=== PATIENT | female | born 1960 | race Caucasian/White ===

== ENCOUNTER 2020-03-20 09:21 | Inpatient (IN) | payer BC ==
[~2020-03-20] VITALS: Ht 167.6 cm; Wt 77.3 kg
[2020-03-20 10:03] LABS: BASOPHILS % (AUTO) 0.7 % (0-1); EOSINOPHILS # (AUTO) 0.2 X10'3 (0-0.9); EOSINOPHILS % (AUTO) 2.2 % (0-6); HEMATOCRIT 40.4 % (35.0-45.0); HEMOGLOBIN 13.6 g/dl (12.0-16.0); LYMPHOCYTES # (AUTO) 2.8 X10'3 (1.1-4.8); LYMPHOCYTES % (AUTO) 39.2 % (21-51); MEAN CORPUSCULAR HEMOGLOBIN 35.5 PG (27.0-31.0); MEAN CORPUSCULAR HGB CONC 33.5 g/dL (33.0-36.5); MEAN CORPUSCULAR VOLUME 105.7 FL (78-98); MEAN PLATELET VOLUME 7.6 FL (7.4-10.4); MONOCYTES # (AUTO) 0.6 X10'3 (0-0.9); MONOCYTES % (AUTO) 8.1 % (2-12); NEUTROPHILS # (AUTO) 3.5 X10'3 (1.8-7.7); NEUTROPHILS % (AUTO) 49.8 % (42-75); PLATELET COUNT 393 X10'3 (140-440); RED BLOOD COUNT 3.82 X10'6 (4.20-5.60); RED CELL DISTRIBUTION WIDTH 14.9 % (11.5-14.5)
[2020-03-20 10:14] LABS: ALANINE AMINOTRANSFERASE 38 U/L (12-78); ALBUMIN 3.4 G/DL (3.4-5.0); ALKALINE PHOSPHATASE 141 IU/L (46-116); ANION GAP 11 (8-16); ASPARTATE AMINO TRANSFERASE 26 U/L (10-37); BILIRUBIN,TOTAL 0.3 MG/DL (0.1-1.0); BLOOD UREA NITROGEN 13 MG/DL (7-18); BUN/CREATININE RATIO 17.6 (6.6-38.0); CALCIUM 8.6 MG/DL (8.5-10.1); CHLORIDE 109 MMOL/L (99-107); CREATININE 0.74 MG/DL (0.40-0.90); GLUCOSE 101 MG/DL (70-104); SODIUM 144 MMOL/L (135-145); TOTAL CARBON DIOXIDE 24.5 MMOL/L (24-32); TOTAL PROTEIN 6.9 G/DL (6.4-8.2); eGFR 80 ML/MIN
[2020-03-20] MEDS ORDERED: nitroGLYCERIN 1gm ointment UD TP ONE (10:45)
[2020-03-20] MEDS ORDERED: iohexol 350MG/ML 100ml bottle IV ONE (11:24)
[2020-03-20] MEDS ORDERED: ZINC50TA67 PO (13:05)
[2020-03-20] MEDS ORDERED: TRIA1TAB5 PO (13:05)
[2020-03-20] MEDS ORDERED: MULT-969 PO (13:05)
[2020-03-20] MEDS ORDERED: acetaminophen 650mg rectal suppository RC PRN (15:05)
[2020-03-20] MEDS ORDERED: mag hydrox/Alum hydrox/simeth 30ml oral suspension PO PRN (15:05)
[2020-03-20] MEDS ORDERED: magnesium hydroxide 30ml (MOM) UD suspension PO PRN (15:05)
[2020-03-20] MEDS ORDERED: potassium Cl 20 mEq SR tablet PO PRN ×2 (15:05)
[2020-03-20] MEDS ORDERED: metoprolol tartrate 1mg/ml inj IV PRN (15:05)
[2020-03-20] MEDS ORDERED: morphine 2 MG/ML inj. syringe IV PRN ×2 (15:05)
[2020-03-20] MEDS ORDERED: potassium Cl 40MEQ/1/2NS 520ml 520 ML IV PRN ×2 (15:05)
[2020-03-20] MEDS ORDERED: magnesium 2GM in 50ml NS 50 ML IV PRN (15:05)
[2020-03-20] MEDS ORDERED: HYDROcodone/acetaminophen 10/325mg tab PO PRN (15:05)
[2020-03-20] MEDS ORDERED: regadenoson 0.4mg/5ml syringe IV ONE (15:05)
[2020-03-20] MEDS ORDERED: HYDROcodone/acetaminophen 5mg/325mg tablet PO PRN (15:05)
[2020-03-20] MEDS ORDERED: ondansetron/PF 4mg/2ml inj IV PRN (15:05)
[2020-03-20] MEDS ORDERED: aminophylline 250mg/10ml inj. IV PRN (15:05)
[2020-03-20] MEDS ORDERED: nitroGLYCERIN 0.4mg SUBLingual tab SL PRN (15:05)
[2020-03-20] MEDS ORDERED: acetaminophen 325mg tablet PO PRN ×2 (15:05)
[2020-03-20] MEDS ORDERED: bisacodyl 10mg suppository rectal RC PRN (15:05)
[2020-03-20] MEDS ORDERED: magnesium 4gm in 100ml NS 100 ML IV PRN (15:05)
[2020-03-20] MEDS ORDERED: magnesium Cl slow-release 64mg tablet PO PRN (15:05)
[2020-03-20] MEDS: normal saline 1000ml 1,000 ML IV SCH (15:31)
[2020-03-20] MEDS: atorvastatin 10mg tablet PO SCH (15:31)
[2020-03-20 16:24] LABS: CHOLESTEROL 176 MG/DL (0-200); HDL CHOLESTEROL 35 MG/DL (35-60); HEMOGLOBIN A1C 6.1 % (4.5-6.2); LDL CHOLESTEROL 127 MG/DL (50-100); TRIGLYCERIDES 59 MG/DL (20-135)
[2020-03-20 18:24] LABS: CLARITY,URINE SLIGHTLY CLOUDY (Clear); COLOR,URINE YELLOW (Yellow); GLUCOSE, URINE NEGATIVE (Neg); KETONES,URINE NEGATIVE (Neg); LEUKOCYTE ESTERASE ,URINE NEGATIVE (Neg); NITRITES, URINE NEGATIVE (Neg); OCCULT BLOOD,URINE SMALL (Neg); PROTEIN,URINE NEGATIVE (Neg); UROBILINOGEN,URINE 0.2 E.U/dL (0.2-1.0)
[2020-03-20 18:28] LABS: UA COLLECTION TYPE CLN CATCH MIDSTREAM
--- NOTE | 2020-03-20 18:50 | NUR ---
Patient in room ED 4. I have received report from Andrew RODRIGUEZ and had the opportunity to ask questions and assume patient care.
[2020-03-20 18:52] LABS: BACTERIA,URINE NONE SEEN /HPF (Neg); RBC,URINE NONE SEEN /HPF (0-2); SQUAMOUS EPITHELIAL CELL,UR MODERATE /LPF (FEW); WBC,URINE 0-4 /HPF (0-4)
[2020-03-20 19:10] VITALS: BP 98/57
[2020-03-20] MEDS: K and/or MAG REPLACEMENT MC SCH (20:00)
[2020-03-20] MEDS: heparin, porcine 5000 units/ml vial SQ SCH (20:05)
[2020-03-20 23:00] VITALS: BP 117/76
[2020-03-21] VITALS (10 sets, daily range): BP systolic 88–132; BP diastolic 49–74
[2020-03-21] MEDS: normal saline 1000ml 1,000 ML IV SCH (04:25)
--- NOTE | 2020-03-21 06:27 | NUR ---
Problems reprioritized. Patient report given, questions answered & plan of care reviewed with Carlos RODRIGUEZ.
--- NOTE | 2020-03-21 06:39 | NUR ---
REPORT RECEIVED BY AN RODRIGUEZ. PATIENT LAYING ON BED SLEEPING NO DISTRESS NOTED. WILL ASSUME CARE. ALL QUESTIONS ANSWERED
[2020-03-21] MEDS ORDERED: aspirin 81mg tablet.DR PO SCH (08:00)
[2020-03-21] MEDS: K and/or MAG REPLACEMENT MC SCH (08:00)
[2020-03-21] MEDS ORDERED: beta-carotene(A) w/C & E + minerals tab PO SCH (08:00)
[2020-03-21] MEDS: heparin, porcine 5000 units/ml vial SQ SCH (08:00)
[2020-03-21 08:14] LABS: BASOPHILS % (AUTO) 0.4 % (0-1); EOSINOPHILS # (AUTO) 0.2 X10'3 (0-0.9); EOSINOPHILS % (AUTO) 2.3 % (0-6); HEMATOCRIT 41.7 % (35.0-45.0); LYMPHOCYTES # (AUTO) 2.7 X10'3 (1.1-4.8); MEAN CORPUSCULAR HEMOGLOBIN 35.3 PG (27.0-31.0); MEAN CORPUSCULAR HGB CONC 33.6 g/dL (33.0-36.5); MEAN CORPUSCULAR VOLUME 105.1 FL (78-98); MEAN PLATELET VOLUME 7.6 FL (7.4-10.4); MONOCYTES # (AUTO) 0.8 X10'3 (0-0.9); MONOCYTES % (AUTO) 9.1 % (2-12); NEUTROPHILS # (AUTO) 5.5 X10'3 (1.8-7.7); NEUTROPHILS % (AUTO) 59.2 % (42-75); PLATELET COUNT 391 X10'3 (140-440); RED BLOOD COUNT 3.97 X10'6 (4.20-5.60); RED CELL DISTRIBUTION WIDTH 15.1 % (11.5-14.5); WHITE BLOOD COUNT 9.3 X10'3 (4.5-11.0)
[2020-03-21 08:34] LABS: ALANINE AMINOTRANSFERASE 41 U/L (12-78); ALBUMIN 3.2 G/DL (3.4-5.0); ALBUMIN/GLOBULIN RATIO 0.9 (1.1-1.5); ALKALINE PHOSPHATASE 167 IU/L (46-116); ANION GAP 9 (8-16); ASPARTATE AMINO TRANSFERASE 25 U/L (10-37); BILIRUBIN,TOTAL 0.2 MG/DL (0.1-1.0); BLOOD UREA NITROGEN 14 MG/DL (7-18); BUN/CREATININE RATIO 19.4 (6.6-38.0); CALCIUM 8.6 MG/DL (8.5-10.1); CHLORIDE 108 MMOL/L (99-107); CHOLESTEROL 169 MG/DL (0-200); CREATININE 0.72 MG/DL (0.40-0.90); GLUCOSE 95 MG/DL (70-104); HDL CHOLESTEROL 34 MG/DL (35-60); LDL CHOLESTEROL 121 MG/DL (50-100); PHOSPHORUS 3.7 MG/DL (2.3-4.5); POTASSIUM 4.2 MMOL/L (3.5-5.1); SODIUM 143 MMOL/L (135-145); TOTAL PROTEIN 6.9 G/DL (6.4-8.2); TRIGLYCERIDES 107 MG/DL (20-135); eGFR 82 ML/MIN
--- NOTE | 2020-03-21 09:10 | NUR ---
pt going to [facility] and send with rn. no distress noted. will follow up
--- NOTE | 2020-03-21 11:08 | NUR ---
pt came back from [facility]. pt denies any acute distress. will cont to monitor
[2020-03-21] MEDS: atorvastatin 10mg tablet PO SCH (11:29)
--- NOTE | 2020-03-21 14:10 | NUR ---
patient upset due to results of lexiscvan not available. she was npo and insisted to eat. pt eating at this time disregarding md orders. pt sattes she will only wait to 3 pm and leave if no answeres tries calling [facility] and no answer will try again. will cont to monitor
--- NOTE | 2020-03-21 15:15 | NUR ---
PATIENT LEAVING AMA AT THIS TIME. PT UPSET BECAUSE LEXISCAN RESULTS NOT IN PLACE. PT WANTS TO LEAVE. EXPLAIN ALL THE RISK OF LEAVING AND SHE AGREES. PT SAYS SHE CAN GET A CALL MREGARDING HER RESULTS AND SHES FEELS FINE. SHE STATES HER ANXIETY IS BETTER OFF AT HOME. IV DC AT THIS TIME. NO COMPLICATIONS . MONITOR OFF AT THIS TIME. PLACED PATIENT ON A WHEELCHAIR AND TOOK HER DOWNSTAIRS WITH SON.
--- NOTE | 2020-03-21 15:41 | NUR ---
PAGER ID: [phone] MESSAGE: LAKESHA MILLER. PATIENT HARDEEP 11 A LEFT AMA. THE REPORT IS UP FOR YOU. SHE STATED SHE COULDNT WAIT LONGER. THANK YOU
== END 2020-03-21 15:21 | disposition left against medical advice (07) | DRG 311 ==
LOC: ER 09:21 → ED HOLD 15:01 → PCU 3S 19:10
PROVIDERS: ADMIT Family Medicine; ATTEND Family Medicine
PROC: 4A02XM4 Measurement of Cardiac Total Activity, External Approach (ICD-10-PCS; principal; 2020-03-21)
PROC: 3E033HZ Introduction of Radioactive Substance into Peripheral Vein, Percutaneous Approach (ICD-10-PCS; 2020-03-21)
DX: I24.9 Acute ischemic heart disease, unspecified (principal); F17.200 Nicotine dependence, unspecified, uncomplicated; I10 Essential (primary) hypertension; J45.20 Mild intermittent asthma, uncomplicated; Z82.49 Family history of ischemic heart disease and other diseases of the circulatory system; Z86.73 Personal history of transient ischemic attack (TIA), and cerebral infarction without residual deficits; Z90.710 Acquired absence of both cervix and uterus; I34.1 Nonrheumatic mitral (valve) prolapse
CPT/HCPCS: 36415; 70450; 70496; 70498; 70551; 71045; 78452; 80053; 80061; 81001; 83036; 83735; 83880; 84100; 84484; 85025; 85651; 87081; 92508; 92616; 93005; 93017; 93306; 96372; 97116; 97161; 97530; 99285; A9500; G0378; J1644; J2785; J7030; Q9967